=== PATIENT | female | born 1990 | race Caucasian/White ===

== ENCOUNTER 2023-01-28 08:50 | Outpatient (CLI) | payer OTHER, SELFPAY | END 2023-01-28 08:51 | disposition home or self-care (01) | LOC: NFLDREF 01-30 19:11 | PROVIDERS: PCP Obstetrics & Gynecology; Referring Provider Obstetrics & Gynecology; Visit Provider Obstetrics & Gynecology | DX: N96 Recurrent pregnancy loss (principal) | CPT/HCPCS: 84702 ==

== ENCOUNTER 2023-01-31 08:43 | Outpatient (CLI) | payer OTHER, SELFPAY | END 2023-01-31 08:44 | disposition home or self-care (01) | LOC: NFLDREF 10:53 | PROVIDERS: PCP Obstetrics & Gynecology; Referring Provider Obstetrics & Gynecology; Visit Provider Obstetrics & Gynecology | DX: N96 Recurrent pregnancy loss (principal) | CPT/HCPCS: 84702 ==

== ENCOUNTER 2023-02-04 15:57 | Outpatient (CLI) | payer OTHER, SELFPAY | END 2023-02-04 15:58 | disposition home or self-care (01) | PROVIDERS: PCP Obstetrics & Gynecology; Visit Provider Obstetrics & Gynecology | DX: O26.899 Other specified pregnancy related conditions, unspecified trimester (principal); Z67.91 Unspecified blood type, Rh negative | CPT/HCPCS: 85461; 86850; J2791 ==

== ENCOUNTER 2023-03-14 09:19 | Outpatient (CLI) | payer OTHER, SELFPAY | END 2023-03-14 09:20 | disposition home or self-care (01) | PROVIDERS: Visit Provider Obstetrics & Gynecology | DX: O03.9 Complete or unspecified spontaneous abortion without complication (principal); R53.83 Other fatigue | CPT/HCPCS: 84443; 84702; 86850; 86870; 86880; 86900; 86901 ==

== ENCOUNTER 2023-08-24 14:35 | Outpatient (CLI) | payer OTHER, SELFPAY | END 2023-08-24 14:36 | disposition home or self-care (01) | LOC: NFLDREF 14:59 | PROVIDERS: Visit Provider Obstetrics & Gynecology | DX: Z34.90 Encounter for supervision of normal pregnancy, unspecified, unspecified trimester (principal) | CPT/HCPCS: 84702 ==

== ENCOUNTER 2023-08-26 15:32 | Outpatient (CLI) | payer OTHER, SELFPAY | END 2023-08-26 15:33 | disposition home or self-care (01) | LOC: NFLDREF 09-01 07:56 | PROVIDERS: Visit Provider Obstetrics & Gynecology | DX: N96 Recurrent pregnancy loss (principal) | CPT/HCPCS: 84702 ==

== ENCOUNTER 2023-09-20 08:41 | Outpatient (CLI) | payer OTHER, SELFPAY ==
--- NOTE | 2023-09-20 08:45 | CRLHL7_ITS ---
For Patients: As a result of the Century Cures Act, medical imaging exams and procedure reports are released immediately into your electronic medical record. You may view this report before your referring provider. If you have questions, please contact your health care provider. INDICATION: First trimester scan, establish dates. COMPARISON: None. TECHNIQUE: Real-time segovia-scale imaging of the pelvis was performed. FINDINGS: Sonographic imaging demonstrates a single living intrauterine gestation. The embryo demonstrates a regular cardiac rate measuring 169 beats per minute. The embryo`s crown-rump length measurement of 2.2 cm corresponds to a gestational age of 8 weeks 6 days with a sonographic due date of 04/25/2024. There is a normal-appearing yolk sac. There are no gross abnormalities noted within the embryo at this early state of development. The gestational sac has a normal appearance. There is a 7 x 10 x 5 millimeter perigestational hemorrhage. The amount of fluid within the sac appears appropriate for gestational age. The cervix is closed. The myometrium appears normal. The ovaries are of normal size. Corpus luteal cyst left ovary. There are no suspicious fluid collections noted in the cul-de-sac. IMPRESSION: Single living intrauterine measuring 8 weeks 6 days and sonographic due date 04/25/2024. Small right-sided subchorionic hemorrhage measuring 7 x 10 x 5 millimeters. Dictated by Jamshid Jones MD @ 09/20/2023 9:47:11 AM (Electronically Signed)
== END 2023-09-20 08:42 | disposition home or self-care (01) ==
LOC: US 08:42
PROVIDERS: Visit Provider Obstetrics & Gynecology
DX: Z34.91 Encounter for supervision of normal pregnancy, unspecified, first trimester (principal); Z3A.08 8 weeks gestation of pregnancy
CPT/HCPCS: 76817; 84443; 86703; 86706; 86803; 86850; 86900; 86901; 87086; 87340; 87491; 87591

== ENCOUNTER 2023-09-20 10:09 | Outpatient (CLI) | payer OTHER, SELFPAY ==
[2023-09-20 16:20] LABS: Chlamydia DNA Amplified* Not Detected (No Detected); GC DNA Amplified* Not Detected (No Detected)
== END 2023-09-20 10:10 | disposition home or self-care (01) ==
PROVIDERS: Visit Provider Obstetrics & Gynecology
DX: Z34.91 Encounter for supervision of normal pregnancy, unspecified, first trimester (principal)
CPT/HCPCS: 84443; 86592; 86703; 86704; 86706; 86762; 86787; 86803; 86850; 86900; 86901; 87086; 87340; 87491; 87591

== ENCOUNTER 2023-09-30 11:00 | Outpatient (RCR) | payer OTHER, SELFPAY ==
[2023-09-30] MEDS: ONDANSETRON 2 MG/ML inj 8 MG IV (11:40)
[2023-09-30] MEDS: SODIUM CHLORIDE 0.9 % (FLUSH) 10 ML SYRINGE IVF (11:40)
[2023-09-30] MEDS: LACTATED RINGERS 1000 ML 1,000 ML IV (11:40)
[2023-09-30 11:43] VITALS: BP 107/77; PULSE 92; RESP 16; O2SAT 98
--- NOTE | 2023-10-07 10:39 | ONC.NURNOTE ---
Patient called and cancelled appointment stating she didn't think she needed it
== END 2024-03-28 23:59 | disposition home or self-care (01) ==
LOC: CCIC 11:00
PROVIDERS: PCP Family Medicine; Referring Provider Obstetrics & Gynecology; Visit Provider Obstetrics & Gynecology
DX: O21.0 Mild hyperemesis gravidarum (principal)
CPT/HCPCS: 96360; 96376; J2405; J7120

== ENCOUNTER 2023-12-09 09:13 | Outpatient (CLI) | payer OTHER, SELFPAY ==
--- NOTE | 2023-12-09 09:15 | US_ITS ---
Patient: AMOL CHRISTENSEN Facility:?[facility] Patient ID:?[id number] Site Patient ID:?[id number]. Site :?1990 Study:?US-OB Pelvis OB ANATOMY-12/09/2023 10:18:04 AM Ordering Physician:MICHOACANO GAYLE M.D. Final Report: INDICATION: Evaluate anatomy. COMPARISON: 09/20/2023 TECHNIQUE: Real time segovia scale imaging of the fetus was performed as well as color Doppler analysis of the umbilical vessels. FINDINGS: Sonographic imaging demonstrates a single living intrauterine gestation. Fetus demonstrates a regular cardiac rate of 141 beats per minute. Fetus has a variable position. The placenta lies fundal posterior without evidence of placenta previa. Placental edge 6.7 cm from the internal cervical os. Amniotic fluid volume appears normal. Single deepest vertical pocket: 5.6 cm. The cervix is closed and measures 4.3 cm in length. The composite ultrasound gestational age is calculated at 20 weeks 4 days with an estimated sonographic due date of 04/23/2024. The estimated weight is 361 grams which lies at the 61st %. The following biometric measurements were obtained: Biparietal diameter: 4.7 cm/20 weeks 1 day 45th% Head circumference: 17.8 cm/20 weeks 2 days 39th% Abdominal circumference: 15.6 cm/20 weeks 5 days 60th% Femur length: 3.3 cm/20 weeks 3 days 47th% The HC/AC ratio measures: 1.14 range (1.07-1.25) On anatomic survey, there is a normal appearance of the cerebral ventricles, cavum septi pellucidi, cisterna magna and cerebellum. The nose, lips, and facial profile appear normal. The cervical, thoracic and lumbar spine are incompletely visualized. There is a normal four-chamber heart view and the left and right ventricular outflow tracts appear normal. The diaphragm and stomach appear normal. The kidneys and bladder also appear normal. The renal pelvis measures 3.8 millimeters on the right and 3.1 millimeters on the left. This is within normal limits. There is a normal three-vessel cord and cord insertion site. The four extremities appear normal. IMPRESSION: Concordance of clinical and sonographic dating. Incomplete visualization of the spine due to position. Short-term follow- up recommended. Remainder of the anatomic survey normal. Minimal bilateral pelviectasis measuring less than 4 millimeters considered normal. Dictated by Jamshid Jones MD @ 12/09/2023 12:00:27 PM Signed by:?Jamshid Jones MD @12/09/2023 12:00:27 PM (Electronic Signature)
== END 2023-12-09 09:14 | disposition home or self-care (01) ==
LOC: US 09:13
PROVIDERS: PCP Family Medicine; Visit Provider Obstetrics & Gynecology
DX: Z34.92 Encounter for supervision of normal pregnancy, unspecified, second trimester (principal); O35.FXX0 Maternal care for other (suspected) fetal abnormality and damage, fetal musculoskeletal anomalies of trunk, not applicable or unspecified; Z3A.20 20 weeks gestation of pregnancy
CPT/HCPCS: 76805; 84443

== ENCOUNTER 2024-01-06 09:11 | Outpatient (CLI) | payer OTHER, SELFPAY ==
--- NOTE | 2024-01-06 09:15 | US_ITS ---
Patient: AMOL CHRISTENSEN Facility:?[facility] Patient ID:?[id number] Site Patient ID:?[id number]. Site :?1990 Study:?US-OB Pelvis f/u anatomy-01/06/2024 9:49:14 AM Ordering Physician:?MICHOACANO MERINO Final Report: INDICATION: Follow-up spine COMPARISON: 12/09/2023 TECHNIQUE: Real time segovia scale imaging of the fetus was performed. FINDINGS: Sonographic imaging demonstrates a single living intrauterine gestation. Fetus demonstrates a regular cardiac rate of 149 beats per minute. Fetus has a breech position. The placenta lies posteriorly. Amniotic fluid volume appears normal. Single deepest vertical pocket: 4.3 cm. The cervical, thoracic and lumbar spine are well visualized and appear normal. The renal pelvis measures less than 4 millimeters bilaterally, considered normal. IMPRESSION: Normal spine. Dictated by Jamshid Jones MD @ 01/06/2024 10:19:28 AM Signed by:?Jamshid Jones MD @01/06/2024 10:19:28 AM (Electronic Signature)
== END 2024-01-06 09:12 | disposition home or self-care (01) ==
LOC: US 09:12
PROVIDERS: PCP Family Medicine; Visit Provider Obstetrics & Gynecology
DX: O35.FXX0 Maternal care for other (suspected) fetal abnormality and damage, fetal musculoskeletal anomalies of trunk, not applicable or unspecified (principal)
CPT/HCPCS: 76816

== ENCOUNTER 2024-02-06 08:42 | Outpatient (CLI) | payer OTHER, SELFPAY | END 2024-02-06 08:43 | disposition home or self-care (01) | PROVIDERS: PCP Family Medicine; Visit Provider Obstetrics & Gynecology | DX: Z34.93 Encounter for supervision of normal pregnancy, unspecified, third trimester (principal); O26.899 Other specified pregnancy related conditions, unspecified trimester; Z67.91 Unspecified blood type, Rh negative; Z3A.28 28 weeks gestation of pregnancy | CPT/HCPCS: 84443; 86592; 86850; J2791 ==

== ENCOUNTER 2024-03-27 08:27 | Outpatient (CLI) | payer OTHER, SELFPAY ==
[2024-03-28 13:01] LABS: Strep B DNA Probe POSITIVE (Negative)
[2024-03-28 13:20] LABS: Strep B Susceptibility Needed? No
== END 2024-03-27 08:28 | disposition home or self-care (01) ==
LOC: NFLDREF 08:27
PROVIDERS: PCP Family Medicine; Visit Provider Obstetrics & Gynecology
DX: Z34.93 Encounter for supervision of normal pregnancy, unspecified, third trimester (principal); Z3A.35 35 weeks gestation of pregnancy
CPT/HCPCS: 87081; 87653

== ENCOUNTER 2024-04-02 12:01 | Outpatient (CLI) | payer OTHER, SELFPAY ==
--- NOTE | 2024-04-02 12:15 | CRLHL7_ITS ---
For Patients: As a result of the Century Cures Act, medical imaging exams and procedure reports are released immediately into your electronic medical record. You may view this report before your referring provider. If you have questions, please contact your health care provider. INDICATION: Third trimester scan, evaluate growth. Uterine size date discrepancy. COMPARISON: 01/06/2024 TECHNIQUE: Real time segovia scale imaging of the fetus was performed. FINDINGS: Sonographic imaging demonstrates a single living intrauterine gestation. Fetus demonstrates a regular cardiac rate of 139 beats per minute. Fetus has a vertex position. The placenta lies fundal posterior. Amniotic fluid volume single deepest vertical pocket: 8.1 cm. MANNY 17.7 cm. The estimated weight is 2704gm which lies at the 24th %. On the prior OB ultrasound exam dated 12/09/2023 the estimated weight was at the 61st%. BPD 29th percentile. HC is 29th percentile. AC is 24th percentile. FL 16th percentile. The HC/AC ratio measures 1.04 range (0.93-1.08). IMPRESSION: Sonographic gestational age 35 weeks 6 days and sonographic due date 05/01/2024. Sonographic age 6 days behind the clinical age. Estimated weight 24th percentile. Abdominal circumference 24th percentile. Amniotic fluid SDP 8.1 cm. MANNY 17.7 cm. Dictated by Jamshid Jones MD @ 04/02/2024 12:53:48 PM (Electronically Signed)
== END 2024-04-02 12:02 | disposition home or self-care (01) ==
LOC: US 12:01
PROVIDERS: PCP Family Medicine; Visit Provider Obstetrics & Gynecology
DX: O26.843 Uterine size-date discrepancy, third trimester (principal); Z3A.35 35 weeks gestation of pregnancy
CPT/HCPCS: 76816

== ENCOUNTER 2024-04-23 23:36 | Inpatient (IN) | payer OTHER, SELFPAY ==
[2024-04-23 23:49] VITALS: BP 110/61; PULSE 88
[2024-04-23 23:54] VITALS: TEMP 36.8
[2024-04-24] VITALS (13 sets, daily range): BP systolic 104–128; BP diastolic 66–75; PULSE 64–75; RESP 16–18; TEMP 36.6–36.8; O2SAT 96–99; BMI 26.1
[2024-04-24] MEDS: LACTATED RINGERS 1000 ML 1,000 ML 125 ML IV (00:10)
[2024-04-24] MEDS: AMPICILLIN 2 GM in 0.9 % SODIUM CHLORIDE Mini-bag 100 ML IVPB (00:11)
[2024-04-24] MEDS: OXYTOCIN 30 unit/500 ML in NS 30 UNIT/500 ML BAG 300 UNIT IVPB (00:19)
--- NOTE | 2024-04-24 00:21 | W.PM.OBVAGDE ---
Documented by User: Brandi Gaston CNM 04/25/24 08:38 OB Procedure Vag Delivery Mother Details Mother Details: Janey is a 33 year-old, 9, now Para 5, admitted on 04/23/24 at 39 6/7 weeks gestation. : 9 Para: 5 Weeks Gestation: 39.6 Admission Date: 04/23/24 Additional Details Amniotic Membrane Status: SROM Amniotic Membrane Rupture Date: 04/24/24 Amniotic Membrane Rupture Time: 23:42 Amniotic Membrane Fluid Description: Clear Analgesia/Anesthesia Type: None Waterbirth: No Pitcoin: Yes (AMTSL) Intrapartal Events: Precipitous Labor <3 Hrs Labor Onset: 22:00 Complete: 00:10 Pushin:10 Heart: heart tones during second stage were category II with variables during contractions and return to baseline between. Delivery Details Delivery Date: 04/24/24 Delivery Time: 00:15 Route of delivery: Gender: Female Infant Viability: Alive; Heart Rate Present Position at Delivery: OA Delivery Details: Patient was admitted for spontaneous onset of labor with SROM of clear fluid at 2342 on arrival. She has a history of fast labors after SROM so GABY Gaston was called to be on standby as OB provider was on her way. Patient was complete with pushing at 0010. of a viable female at 0015 on her right side on the bed. Vertex delivered OA. No nuchal cord or shoulder. Body delivered easily and without incident. passed to mothers abdomen with a vigorous cry. Dr. Bender arrived a few minutes after delivery and assumed care. Cord was clamped and cut at > 5 minutes. APGARS were 8 at one minute and 9 at five minutes respectively. Mouth was bulb suctioned. Intact placenta with a 3 vessel cord delivered spontaneously at 12:20am. Fundus firm. Intact perineum. QBL 50 cc. Mother and baby stable; mother plans to breastfeed. weight pending. Baby's name: Karen. Additional Details Shoulder Dystocia: No Procedure Done: Global Event Summary Status: Mother and were stable after delivery. Documented by User: Zeina Bender MD 04/24/24 00:40 OB Procedure Vag Delivery Delivery Details Delivery Details: Patient was admitted for spontaneous onset of labor with SROM of clear fluid at 2342 on arrival. She has a history of fast labors after SROM so Alek, CNM was called to be on standby as OB provider was on her way. Patient was complete with pushing at 0010. of a viable female at 0015 on her right side on the bed. Vertex delivered OA. No nuchal cord or shoulder. Body delivered easily and without incident. passed to mothers abdomen with a vigorous cry. Dr. Bender arrived a few minutes after delivery and assumed care. Cord was clamped and cut at > 5 minutes. APGARS were 8 at one minute and 9 at five minutes respectively. Mouth was bulb suctioned. Intact placenta with a 3 vessel cord delivered spontaneously at 12:20am. Fundus firm. [1st/2nd degree] identified and repaired in typical fashion. QBL 50 cc. Mother and baby stable; mother plans to breastfeed. Infant weight pending. Baby's name: Karen. 1 Minute Interval Total Score: 8 5 Minute Interval Total Score: 9 Additional Details Placental Delivery Description: Spontaneous Blood Loss: 50 Laceration: None Blood Loss Measurement Type: QBL Cord Vessel Description: 3 Vessels Event Summary Disposition: floor
--- NOTE | 2024-04-24 00:31 | P.LDBA_ITS ---
Subjective History of Present Illness Time Seen by Provider: 00:32 Date Seen: 04/24/24 Narrative: Janey is being admitted to Labor and Delivery for spontaneous onset of labor. She is a 33 year old at weeks gestation. Her full history and physical was dictated by Woody Funez CNM on 04/02/2024. Please see this for details. Labor started at approximately 10:00 p.m. on 04/23/2024 Specific Issues/Plans GBS positive, no antibiotic allergies H&P done by Woody Funez CNM on 04/02/24 1. Blood type A negative. * RhoGAM at 28 weeks: Administered 02/06/2024 2. History anti E antibody in 2017. Negative antibody screen 09/20/2023. 3. History of depression. Previously treated with medication, none currently. 4. Hyperemesis gravidarum. * Zofran orally. * IV fluid hydration as needed. * Midline IV ordered, to be used as needed for fluids and IV Zofran. *[facility] working on arrangements with Home Health to be able to offer Midline IV, not available yet. Peripheral IV access as needed for now. * Reglan QID prn ordered on 10/05/23 5. History of hypothyroidism. * TSH: 1.64 on 09/20/2023 * TSH on 12/09/23: 2.9 * TSH on 02/06/2024: 2.3 6. History of -induced thrombocytopenia. * CBC: Platelets 128 on 09/20/2023 * Recheck each trimester. * CBC on 12/09/23: 130 * Recheck CBC at 34 weeks gestation: 126 33 week mental health: DELANEY 7 = 9, PHQ-9 = 12. OB - Problem Based A/P Additional Plan (1) Spontaneous onset of labor: Status: Acute Plan 1. Expect vaginal delivery. OB Exam Physical Exam Vital signs: Pulse BP 75 121/68 04/24/24 00:21 04/24/24 00:21 Narrative: GENERAL APPEARANCE: Pleasant, , well-groomed woman in significant pain with contractions. VITAL SIGNS: as noted in nursing notes LUNGS: Clear to auscultation bilaterally without wheezes, rales or rhonchi. HEART: Regular rate and rhythm with normal S1 and S2. No gallop, rub or murmur. ABDOMEN: Gravid. Soft, nontender, nondistended, with normal bowels sounds throughout. EFM: Baseline: 140s, accelerations present, decelerations absent, reactive, category 1 TOCO: Q2-3 minutes. SVE per nursin cm/ 100 %/ 0. EXTREMITIES: No cyanosis, clubbing, or edema. [+/-] varicosities. NEUROLOGIC: Normal gait and balance. Normal deep tendon reflexes at bilateral patella 2+/2, equal without clonus. PSYCHIATRIC: alert and oriented x3. Normal speech pattern, eye contact and affect. SKIN: Warm, dry, and well perfused. Good turgor. No lesions, nodules or rashes.
[2024-04-24] MEDS: IBUPROFEN 600 MG TABLET PO ×3 (02:31→17:52)
[2024-04-24] MEDS: DOCUSATE SODIUM 100 MG CAPSULE PO (19:18)
[2024-04-25 00:33] VITALS: BP 111/71; PULSE 68; RESP 18; TEMP 37.2
[2024-04-25] MEDS: IBUPROFEN 600 MG TABLET PO ×2 (00:34→13:11)
[2024-04-25 06:51] LABS: Hemoglobin* 10.2 gm/dL (12.0-16.0)
[2024-04-25 07:38] VITALS: BP 100/66; PULSE 79; RESP 16; TEMP 36.7; O2SAT 97
--- NOTE | 2024-04-25 08:01 | PM.OBDSVD1 ---
DS: Providers Provider Date Seen: 04/25/24 Date of admission: 04/23/24 23:36 Primary care physician: Royal Julio MD Admitting Clinician: Zeina Bender MD Attending Physician on discharge: Brandi Gaston CNM DS: Diagnosis Discharge Diagnosis (1) care and examination immediately after delivery: Status: Acute (2) Lactating mother: Status: Acute (3) Gestational thrombocytopenia: Status: Acute Exam Narrative: Exam Narrative: GENERAL APPEARANCE:? normal affect, alert, no distress MOOD:? appropriate CHEST:? clear to auscultation HEART:? regular rate and rhythm ABDOMEN:? soft, non-tender the uterine fundus is 2 below Umbilicus, Midline and is appropriate for the stage of recovery. PERINEUM:? mild edema of the perineum. EXTREMITIES:? normal and no edema Const: Vital Signs, click to edit/add: Vital Signs - 24 hr 04/24/24 08:30 04/24/24 12:15 04/24/24 15:45 Temperature 98.3 F 98.1 F 98.0 F Pulse Rate [Pulse Oximeter] 72 72 71 Respiratory Rate 16 16 16 Blood Pressure [Le ft Arm] 110/68 104/69 115/68 Pulse Oximetry 96 96 97 Oxygen Delivery Me thod Room Air Room Air Room Air 04/24/24 20:09 04/25/24 00:33 04/25/24 07:38 Temperature 98.0 F 98.9 F 98.0 F Pulse Rate [Pulse Oximeter] 68 68 79 Respiratory Rate 18 18 16 Blood Pressure [Le ft Arm] 112/74 111/71 100/66 Pulse Oximetry 99 97 Oxygen Delivery Me thod Room Air Room Air Room Air Documenting provider has reviewed patient's vital signs: yes OB - DS: Summary Hospital Course Hospital Course: Janey is a 33 y.o. G 9 P 5045 who was admitted to L & D for spontaneous onset of labor. She had a NVD that was uncomplicated. She was GBS + but did not receive adequate treatment due to precipitous labor. The patient feels well. ?The pain is well controlled with current medications. ?She has no new complaints. ?She is breast feeding and reports things are going well. the patient has done well.? Vitals have been stable.? She has remained afebrile.? Has a good appetite, is tolerating a general diet. ?She is voiding without difficulty.? She is passing gas and has not had a bowel movement.? She is ambulating and denies any dizziness.? Has small amount of rubra lochia. She is planning NFP for prevention. Problems: none plan: Discharge home with baby. Follow up in 2 weeks and 6 weeks. , may see if needed Hgb 10.2. Plans to restart . Gestational thrombocytpenia Peripartum Data Infant delivery method: Vaginal Laceration description: None complications: none Gender: Female Infant Discharge Plan: Home Status at Discharge Functional status at discharge: independent ambulation Overall status at discharge: patient is progressing back to baseline Time Spent with Patient Time attestation: Total time spent providing and/or coordinating discharge services: Time spent: Less than 30 minutes Discharge Plan Discharge Disposition: Home, Self-Care Date of Admission: 04/23/24 23:36 Attending Provider on Discharge: Brandi Gaston Primary Care Provider: Royal Julio Condition: Stable Anticipated Discharge Date/Time: 04/25/24 12:00 Discharge Medications: New docusate sodium 100 mg Capsule 100 mg PO BID PRNQty: 90 0RF ibuprofen 600 mg Tablet 600 mg PO Q6H PRNQty: 60 0RF acetaminophen 500 mg Tablet 1,000 mg PO Q6H PRNQty: 0 0RF Continued pyridoxine (vitamin B6) 100 mg tablet 50 mg PO QDAY Discontinued Unisom (doxylamine) 25 mg tablet 25 mg PO QHS PRN Discharge Orders: Discharge Order (Routine); Ordered 04/25/24 Ordered By: Brandi Gaston Patient Education: OB Over the Counter Medication Information, OB Vaginal/Breast Feeding Additional Instructions: Discharge instructions were reviewed with the patient including signs and symptoms of infection and home going medications Nothing vaginally for 6 weeks: no tampons or intercourse Off Work or School for 6 weeks 2-week visit: discuss feeding concerns, review control options and screen for anxiety/depression. 6-week visit for an annual exam. consultation services are available to all mothers and babies for the first year after delivery.? To make an appointment, please call [phone]. Activity Level: Activity as Tolerated Discharge Diet: Regular Follow Up Appointments: [facility] [Provider Group] Forms: [facility] Info Instructions
[2024-04-25] MEDS: DOCUSATE SODIUM 100 MG CAPSULE PO (08:24)
[2024-04-25 12:19] LABS: Rapid Plasma Reagin (RPR) Non Reactive (Non Reactive)
== END 2024-04-25 13:20 | disposition home or self-care (01) | DRG 807 ==
LOC: OB OUT 23:52 → OB 23:52
PROVIDERS: Admitting Provider Obstetrics & Gynecology; PCP Family Medicine; Visit Provider Obstetrics & Gynecology
DX: O99.824 Streptococcus B carrier state complicating childbirth (principal); Z37.0 Single live birth; O62.3 Precipitate labor; O99.12 Other diseases of the blood and blood-forming organs and certain disorders involving the immune mechanism complicating childbirth; D69.6 Thrombocytopenia, unspecified; O26.893 Other specified pregnancy related conditions, third trimester; Z67.11 Type A blood, Rh negative; K21.9 Gastro-esophageal reflux disease without esophagitis; Z86.39 Personal history of other endocrine, nutritional and metabolic disease; Z86.59 Personal history of other mental and behavioral disorders; Z3A.39 39 weeks gestation of pregnancy
CPT/HCPCS: 36415; 85018; 85461; 86592; G0463; A9270; J0290; J2791; J7120